=== PATIENT | female | born 1975 | race Hispanic/Latino ===

== ENCOUNTER 2018-06-11 22:55 | Emergency (ER) | payer SELFPAY ==
[~2018-06-11] VITALS: Ht 157.5 cm; Wt 88.4 kg
[2018-06-12 00:10] VITALS: BP 146/92
== END 2018-06-12 00:11 | disposition home or self-care (01) ==
LOC: EME 22:55
DX: S60.444A External constriction of right ring finger, initial encounter (principal); W49.04XA Ring or other jewelry causing external constriction, initial encounter
CPT/HCPCS: 99281; 99283